=== PATIENT | male | born 1940 ===

== ENCOUNTER → 2018-07-17 21:00 | Outpatient (ROUT) | payer MEDICARE, SELFPAY ==
[2018-07-17 21:03] LABS: WBC Urine None Seen (0-5/HPF)
[2018-07-17 22:29] LABS: Appearance Urine UA CLEAR; Bilirubin Urine UA NEGATIVE (NEGATIVE); Color Urine UA YELLOW; Glucose Urine UA NEGATIVE (Negative); Ketones Urine UA NEGATIVE (NEGATIVE); Leukocyte Esterase Urine UA NEGATIVE (NEGATIVE); Nitrite Urine UA NEGATIVE (Negative); Occult Blood Urine UA NEGATIVE (Negative); Protein Urine UA NEGATIVE (Negative); Urobilinogen Urine UA 0.2 E.U./dL (0.2); pH Urine UA 6.5 (4.5-8.0)
[2018-07-17 23:03] LABS: Bacteria Urine Occasional (0-1); Calcium Oxalate Crystals Urine Occasional; Squamous Epithelial Cell Urine 0-1 /HPF (0-5/HPF)
[2018-07-17 23:04] LABS: Culture Indicated Urine Cult Not Indicated; RBC Urine None Seen (0-5/HPF)
[2018-07-17 23:07] LABS: Microalbumi Creatinin Ratio Ur 6.3 ug/mg CR (<30); Microalbumin Urine Random < 0.6 mg/dL (0-1.6)
[2018-07-17 23:30] LABS: Hemoglobin A1C% w Est Avg Glu 6.1 % (4.0-6.0)
[2018-07-23 14:42] LABS: PSA, Total 1.6
[2018-07-23 14:46] LABS: PSA Free % 31
== END ==
PROVIDERS: Visit Provider Family Medicine
DX: E11.9 Type 2 diabetes mellitus without complications (principal); E78.5 Hyperlipidemia, unspecified; Z79.899 Other long term (current) drug therapy
CPT/HCPCS: 36415; 81001; 82043; 82570; 83036; 84153; 84154